=== PATIENT | female | born 1990 | race Hispanic/Latino ===

== ENCOUNTER 2016-04-24 04:35 | Emergency (ER) | payer BC ==
[2016-04-24 05:08] LABS: Basophils % (Auto) 1.2 % (0.0-1.8); Hematocrit 33.6 % (30.3-42.9); Hemoglobin 11.2 gm/dl (10.1-14.3); Mean Corpuscular HGB Conc 33 % (30-34); Mean Corpuscular Hemoglobin 27 pg (28-32); Mean Corpuscular Volume 81 fl (79-97); Platelet Count 301 K/mm3 (140-440); Red Blood Count 4.13 M/mm3 (3.65-5.03); Red Cell Distribution Width 14.3 % (13.2-15.2)
[2016-04-24 05:43] LABS: BUN/Creatinine Ratio 23.33; Blood Urea Nitrogen 14 mg/dL (7-17); Calcium 9.6 mg/dL (8.4-10.2); Carbon Dioxide 27 mmol/L (22-30); Chloride 103.6 mmol/L (98-107); Glucose 95 mg/dL (65-100); Sodium 143 mmol/L (137-145)
[2016-04-24 06:01] LABS: Anion Gap 17 mmol/L
[2016-04-24 06:19] LABS: Urine Drugs of Abuse Note Disclamer
[2016-04-24 06:41] LABS: Bacteria,Urine 1+ /HPF (Negative); Bilirubin,Urine NEG (Negative); Blood,Urine MOD (Negative); Ketones,Urine NEG (Negative); Leukocyte Esterase,Urine SM (Negative); Mucus,Urine 3+ /HPF; Nitrite,Urine NEG (Negative); Protein,Urine <15 mg/dL mg/dL (Negative); Urobilinogen,Urine < 2.0 mg/dL (<2.0)
--- NOTE | 2016-04-24 07:26 | Emergency Department Report ---
HPI - General Chief Complaint: Medical Clearance Time Seen by Provider: 04/24/16 07:11 - HPI HPI: Chief complaint: Requesting detox HPI: Patient is a 25-year-old female with history of opiate addiction who started that using her 1 several weeks ago after being clean for 2-3 weeks. Patient states she is depressed and has had some suicidal thoughts while doing drugs but is currently not suicidal. Mode of arrival: [EMS] Source: [Patient] and nursing notes Began: Several weeks Duration: Daily Context: Patient states she does take Suboxone when she is not taking heroin Quality: No complaints of pain Severity: 0 out of 10 Improved with: Nothing Worsened with: Nothing Associated signs and symptoms: Denies cough cold sore throat nausea vomiting or diarrhea. ED Past Medical Hx - Past Medical History Previous Medical History?: No Additional medical history: Narcotic addiction - Surgical History Past Surgical History?: Yes Additional Surgical History: Surgical removal of needle from arm. - Social History Smoking Status: Never Smoker Substance Use Type: Heroin - Medications Home Medications: Home Medications Medication Instructions Recorded Confirmed Last Taken Type Escitalopram [Lexapro] 10 mg PO DAILY 04/24/16 04/24/16 04/23/16 History QUEtiapine [SEROquel] 200 mg PO QPM 04/24/16 04/24/16 04/23/16 History ED Review of Systems ROS: Stated complaint: MED CLEARANCE Other details as noted in HPI ROS Constitutional: No fever ENT: No uri symptoms Cardiovascular: No chest pain Respiratory: No sob or cough GI: No nausea vomiting or diarrhea : No dysuria frequency or urgency, Skin: No rash Neuro: No focal weakness or numbness Psych: depression Bonifacio/lymph: No edema Physical Exam - Physical Exam Vital Signs: Vital Signs 04/24/16 05:06 Temperature 98.0 F Pulse Rate 81 Blood Pressure 108/69 [Left] O2 Sat by Pulse 99 Oximetry Physical Exam: GENERAL: The patient is well-developed well-nourished . HEENT: Normocephalic. Atraumatic. Extraocular motions are intact. Patient has moist mucous membranes. NECK: Supple. No meningitic signs are noted. There is no adenopathy noted. CHEST/LUNGS: Clear to auscultation. There is no respiratory distress noted. HEART/CARDIOVASCULAR: Regular. There is no tachycardia. There is no gallop rub or murmur. ABDOMEN: Abdomen is soft, nontender. Patient has normal bowel sounds. There is no abdominal distention. SKIN: There is no rash. There is no edema. There is no diaphoresis. NEURO: The patient is awake, alert, and oriented. The patient is cooperative. The patient has no focal neurologic deficits. The patient has normal speech. MUSCULOSKELETAL: There is no tenderness or deformity. There is no limitation range of motion. There is no evidence of acute injury. ED Course Vital Signs 04/24/16 05:06 Temperature 98.0 F Pulse Rate 81 Blood Pressure 108/69 [Left] O2 Sat by Pulse 99 Oximetry - Reevaluation(s) Reevaluation #1: 04/24/16 07:28 Discussed with [facility]. Patient medically cleared and will be discharged back to [facility] for detox. ED Medical Decision Making - Lab Data Result diagrams: 04/24/16 04:58 04/24/16 04:58 Laboratory Tests 04/24/16 04/24/16 04/24/16 04:58 05:37 05:37 Urine HCG, Qual Negative Urine Opiates Screen Presumptive positive Plasma/Serum Alcohol < 0.01 Urinalysis within normal limits. Critical care attestation.: If time is entered above; I have spent that time in minutes in the direct care of this critically ill patient, excluding procedure time. ED Disposition Clinical Impression: Heroin abuse Disposition: DC/TX PSY HOSP/PSY UNIT Is pt being admited?: No Does the pt Need Aspirin: No Condition: Fair Time of Disposition: 07:21 (transfer to a psychiatric facility)
[2016-04-24 10:10] VITALS: BP 130/81
== END 2016-04-24 11:25 ==
LOC: ED 04:35
DX: F11.129 Opioid abuse with intoxication, unspecified (principal)
CPT/HCPCS: 36415; 80048; 81001; 81025; 85025; 99285; G0479; G0480; 80307; 80320